=== PATIENT | female | born 1945 | race Caucasian/White ===

== ENCOUNTER → 2023-12-15 12:39 | Outpatient (REF) | payer MEDICARE, SELFPAY | LOC: DHCBC HW 12:39 | PROVIDERS: ATTENDING PHYSICIAN Internal Medicine; FAMILY PHYSICIAN Family Medicine | DX: I25.10 Atherosclerotic heart disease of native coronary artery without angina pectoris (principal); Z95.5 Presence of coronary angioplasty implant and graft; E78.00 Pure hypercholesterolemia, unspecified; I63.9 Cerebral infarction, unspecified; G45.9 Transient cerebral ischemic attack, unspecified | CPT/HCPCS: 93306 ==

== ENCOUNTER 2025-01-19 10:54 | Emergency (ER) | payer MEDICARE, SELFPAY ==
[2025-01-19 10:56] VITALS: BP 130/53
--- NOTE | 2025-01-19 12:09 | ED.GENMED ---
History of Present Illness
General
Chief Complaint: Fall
Source: patient
Exam Limitations: none
Time Seen by Provider: 01/19/25 11:44
Nursing documentation reviewed up to this point in time: agreed with
History of Present Illness
History of Present Illness:
80-year-old female past medical history of hypothyroidism previous heart disease presenting the emergency department today with concerns of right-sided knee pain after fall yesterday where she twisted her knee. Denies specific trauma no head trauma
no additional injuries no numbness or weakness.
Review of Systems
Review of Systems
Allergies reviewed?: Yes
All Other Systems: ROS reviewed and negative except as documented in HPI and ROS
Phy Exam
Physical Exam
Physical Exam:
GENERAL: Alert , in no apparent distress
EYE: pupils equal and reactive
NECK: Supple, no significant adenopathy.
ENT: o/p clr, mmm.
CARDIAC: Regular rate and rhythm .
LUNGS: Clear breath sounds bilaterally, no acute respiratory distress, no wheezes/rales/rhonchi
ABDOMEN: Soft, without focal tenderness, no r/g, no cvat
NEUROLOGICAL: Alert and oriented, no focal neuro deficits
SKIN: Warm and dry, skin intact.
MUSCULOSKELETAL: Mild vague swelling to the anterior right knee no redness or warmth good range of motion tenderness mainly with anterior drawer and Brian's otherwise no discomfort with additional laxity test. No significant laxity on exam., well
perfused.
PSYCH: Normal and appropriate interaction.
Course
Orders/Labs/Results
Orders:
Orders
01/19/25 10:59
Knee, Right 4 or More Views [CR Knee- Right 4 Or More View*] Urgent
Comment:
Reason For Exam: injury
01/19/25 12:09
Knee Immobilizer Right-Treatme ONCE
Vital Signs
Initial and Last Documented VS:
Initial Vital Signs
Temp Pulse Resp BP Pulse Ox
98.5 F 71 18 130/53 98
01/19/25 10:56 01/19/25 10:56 01/19/25 10:56 01/19/25 10:56 01/19/25 10:56
Last Documented Vital Signs
Temp Pulse Resp BP Pulse Ox
98.5 F 71 18 130/53 98
01/19/25 10:56 01/19/25 10:56 01/19/25 10:56 01/19/25 10:56 01/19/25 10:56
MDM/Problems Addressed
MDM/Problems Addressed:
80-year-old female presenting to the emergency department today with concerns of right-sided knee pain after a fall and twist of the knee yesterday. Difficulty ambulating today. On x-ray without signs of emergent fracture. Patient with likely
internal knee derangement. Was given a knee brace and advised for close orthopedic follow-up. Return precautions given.
*Critical Care Note
Total Time (30-74mins, 75-104mins- exclusive of procedures): Not Applicable
ED Attending Note
-
Portions of this chart may have been created with voice recognition software.� Occasional wrong word or��sound alike� substitutions may have occurred due to the inherent limitations of voice recognition software.
Discharge Plan
Departure
Patient Disposition: Home (Routine Discharge)
Date of Disposition: 01/19/25
Time of Disposition: 12:13
Patient with high blood pressure during this ER visit?: No
Condition: Good
Covid-19: Not Applicable
Discharge Problem:
Internal derangement of knee
Instructions: Knee Sprain ED
Referrals:
PRIVATE,PHYSICIAN [Family Provider] -
Activity Restrictions/Additional Instructions:
You came to the emergency department today with concerns of knee pain. Here you had a normal x-ray. You likely have an internal knee injury. Please return for any worsening, new or concerning symptoms. Otherwise please follow-up closely with
orthopedics.
Interventions
Interventions:
*Risk Screen - Suicide Last Done: 01/19/25 10:56
*General Assessment Last Done: 01/19/25 10:56
*Neglect/Abuse Screening Last Done: 01/19/25 10:56
*ED- Fall Risk Assessment Last Done: 01/19/25 10:56
*ED COVID-19 Vaccine History Last Done: 01/19/25 10:56
Discharge Date and Time
Print Language: IRISH
[2025-01-19 12:38] VITALS: BP 127/69
== END 2025-01-19 12:42 | disposition home or self-care (01) ==
LOC: EMR 10:54
PROVIDERS: EMERGENCY PHYSICIAN Emergency Medicine
DX: M23.91 Unspecified internal derangement of right knee (principal); W19.XXXA Unspecified fall, initial encounter; E03.9 Hypothyroidism, unspecified; I51.9 Heart disease, unspecified
CPT/HCPCS: 99283; 73564